=== PATIENT | female | born 1995 | race Caucasian/White ===

== ENCOUNTER 2023-11-25 10:52 | Emergency (ER) | payer BC ==
[~2023-11-25 10:52] MED LIST: Albuterol/Ipratropium 3 MG-0.5 MG/3 ML Neb Soln IH ONE; levoFLOXacin 250 MG TABLET PO ONE; methylPREDNISolone Sod Succ 125 MG/2 ML VIAL IM ONE
[2024-01-15 10:36] LABS: BASO # 0.05 K/mm3 (0.02-0.10); EOS # 0.11 K/mm3 (0.04-0.40); EOS % 0.7 % (1.0-5.0); HEMATOCRIT 43.7 % (37.0-47.0); HEMOGLOBIN 14.5 g/dL (12.5-16.0); LYMPH# 3.41 K/mm3 (1.50-4.00); MEAN CELL VOLUME 89 fl (78-100); MEAN CORPUSCULAR HEMOGLOBIN 30 pg (27-31); MEAN CORPUSCULAR HGB CONC 33 g/dL (33-37); MEAN PLATELET VOLUME 9.5 fl (7.4-10.4); MONO # 0.94 K/mm3 (0.20-0.80); NEU # 11.29 K/mm3 (1.40-6.50); PLATELET COUNT 601 K/mm3 (130-400); RED BLOOD COUNT 4.92 M/mm3 (4.10-5.30); RED CELL DISTRIBUTION WIDTH 13.2 % (11.5-14.5); WHITE BLOOD COUNT 15.9 K/mm3 (4.8-10.8)
[2024-01-15 10:45] LABS: ALBUMIN 4.1 g/dL (3.5-5.0); CALCIUM 10.1 mg/dL (8.3-10.5); TOTAL BILIRUBIN 0.4 mg/dL (0.2-1.2); TOTAL PROTEIN 8.4 g/dL (6.4-8.3)
== END 2023-11-25 14:14 ==
LOC: ED 10:52
PROVIDERS: Family Medicine
DX: J45.901 Unspecified asthma with (acute) exacerbation (principal); J21.9 Acute bronchiolitis, unspecified
CPT/HCPCS: J2919